=== PATIENT | female | born 1990 | race Hispanic/Latino ===

== ENCOUNTER 2022-12-20 14:11 | Day surgery (SDC) | payer OTHER ==
[2022-12-20 14:43] VITALS: BMI 35.6
[2022-12-20] MEDS ORDERED: hydrALAZINE 20 MG/ML VIAL SLOW IVP PRN (15:04)
[2022-12-20] MEDS ORDERED: Promethazine HCl 25 MG in Sodium Chloride 0.9% 50 ML IVPB PRN (15:06)
[2022-12-20] MEDS ORDERED: Lactated Ringer's 1,000 ML IV SCH (15:15)
[2022-12-20 16:03] LABS: ALT (SGPT) 10 U/L (8-55); AST (SGOT) 13 U/L (5-34); Albumin 3.6 g/dL (3.5-5.0); Alkaline Phosphatase 57 U/L (40-110); Anion Gap 12 mmol/L (10-20); BUN (Urea Nitrogen) 7 mg/dL (7.0-18.7); Bilirubin, Total 0.3 mg/dL (0.2-1.2); Calc. Creatinine Clearance 213 mL/min (70-130); Calcium 8.5 mg/dL (7.8-10.44); Carbon Dioxide 20 mmol/L (22-29); Chloride 108 mmol/L (98-107); Estimated GFR 125; Glucose 103 mg/dL (70-105); Potassium 3.3 mmol/L (3.5-5.1); Protein, Total 5.6 g/dL (6.0-8.3); Sodium 137 mmol/L (136-145)
[2022-12-20 16:08] LABS: #Eosinphils 0.3 10x3/uL (0.0-0.5); #Monocytes 0.3 10x3/uL (0.0-1.1); #Neutrophils 5.1 10x3/uL (1.5-8.4); %Basophils 0.3 % (0.0-2.0); %Eosinophils 4.4 % (0.0-6.0); %Lymphocytes 18.3 % (18.0-47.0); %Neutrophils 72.6 % (40.0-75.0); Hemoglobin 11.2 g/dL (12.0-15.5); Mean Corpuscular HGB CONC 34.4 g/dL (32.0-36.0); Mean Corpuscular Hemoglobin 30.8 pg (27.0-33.0); Mean Corpuscular Volume 89.6 fl (81.6-98.3); Mean Platelet Volume 14.4 fl (7.4-10.4); Platelet Count 82 10x3/uL (150-450); RBC Distribution Width 13.9 % (11.5-14.5); Red Blood Cell (RBC) Count 3.64 10x6/uL (3.90-5.03)
[2022-12-20 16:10] LABS: Large Platelets SLIGHT (None Seen); RBC Morph Comment Within Normal Limits
[2022-12-20 16:11] LABS: Platelet Adequacy Comment Appears Decreased
[2022-12-20 16:40] LABS: HIV (1/2) Antibody/Antigen Non-Reactive (NonReactive); HIV 1/2 INDEX 0.07 S/CO (<1.00)
[2022-12-20] MEDS ORDERED: Potassium Chloride 20 MEQ TAB PO SCH (17:15)
[2022-12-20] MEDS ORDERED: Potassium Chloride 10 MEQ TAB PO SCH (17:15)
[2022-12-20 17:27] LABS: Bilirubin Neg (Negative); Blood, Urine Negative (Negative); Clarity Clear (Clear); Glucose, Urine (Dipstick) Normal (Negative); Ketone, Urine Negative (Negative); Leukocyte 25 (Negative); Nitrite Negative (Negative); Protein, Urine (Dipstick) Negative (Neg-Trace); Specific Gravity, Urine 1.005 (1.005-1.030); Urobilinogen Normal mg/dL (Less than 2)
[2022-12-20 17:49] LABS: Bacteria/HPF 2+ HPF (None Seen); RBC/HPF 0-3 HPF (0-3)
== END 2022-12-20 18:15 | disposition home or self-care (01) ==
LOC: CSHLD/OP 14:11
PROVIDERS: ATTEND Obstetrics & Gynecology
DX: O09.43 Supervision of pregnancy with grand multiparity, third trimester (principal); O36.8130 Decreased fetal movements, third trimester, not applicable or unspecified; O21.2 Late vomiting of pregnancy; Z3A.29 29 weeks gestation of pregnancy; Z91.018 Allergy to other foods
CPT/HCPCS: 80053; 81001; 85025; 87389; J2550

== ENCOUNTER 2023-02-25 19:30 | Inpatient (IN) | payer OTHER ==
[2023-02-25] MEDS ORDERED: HYDROcodone/Acetaminophen 5/325 mg Tablet PO PRN ×2 (20:47)
[2023-02-25] MEDS ORDERED: Lidocaine 1% (PF) 30 ML VIAL SC PRN (20:47)
[2023-02-25] MEDS ORDERED: Promethazine HCl 25 MG/ML VIAL IM PRN (20:47)
[2023-02-25] MEDS ORDERED: Ibuprofen 800 MG TAB PO PRN (20:47)
[2023-02-25] MEDS ORDERED: Misoprostol 200 MCG TAB PR PRN (20:47)
[2023-02-25] MEDS ORDERED: Methylergonovine 0.2 MG/ML VIAL IM PRN (20:47)
[2023-02-25] MEDS ORDERED: hydrALAZINE 20 MG/ML VIAL SLOW IVP PRN (20:47)
[2023-02-25] MEDS ORDERED: Ondansetron PF 4 MG/2 ML Vial IVP PRN (20:47)
[2023-02-25] MEDS ORDERED: fentaNYL 50 mcg/mL 1 mL Vial SLOW IVP PRN (20:47)
[2023-02-26] MEDS ORDERED: Lactated Ringer's 1,000 ML IV SCH (05:00)
[2023-02-26] MEDS ORDERED: Oxytocin 30 units/NS 500 ML 500 ML IV SCH ×3 (05:00→21:00)
[2023-02-26] MEDS: Misoprostol 100 MCG TAB VAG SCH (06:23)
[2023-02-26 07:02] LABS: Syphilis Antibody Nonreactive (Nonreactive); Syphilis Antibody Index 0.07 S/CO (<1.00 Non-Reactive)
[2023-02-26 07:03] LABS: HBSAg Index 0.25 S/CO (0-0.99); Hep B Surf Ag - L&D Non-Reactive S/CO (NonReactive)
[2023-02-26 07:18] LABS: Hematocrit 33.7 % (34.9-44.5); Hemoglobin 11.6 g/dL (12.0-15.5); Mean Corpuscular HGB CONC 34.4 g/dL (32.0-36.0); Mean Corpuscular Volume 90.1 fl (81.6-98.3); Platelet Count 75 10x3/uL (150-450); RBC Distribution Width 13.9 % (11.5-14.5); Red Blood Cell (RBC) Count 3.74 10x6/uL (3.90-5.03); White Blood Cell (WBC) Count 7.3 10x3/uL (3.5-10.5)
[2023-02-26 08:28] VITALS: BMI 37.8
[2023-02-26 08:52] LABS: ALT (SGPT) 15 U/L (8-55); AST (SGOT) 15 U/L (5-34); Albumin 3.5 g/dL (3.5-5.0); Alkaline Phosphatase 86 U/L (40-110); Anion Gap 14 mmol/L (10-20); BUN (Urea Nitrogen) 8 mg/dL (7.0-18.7); Bilirubin, Total 0.4 mg/dL (0.2-1.2); Calc. Creatinine Clearance 198 mL/min (70-130); Calcium 8.5 mg/dL (7.8-10.44); Carbon Dioxide 18 mmol/L (22-29); Chloride 111 mmol/L (98-107); Estimated GFR 121; Globulin 2.3 g/dL (2.4-3.5); Glucose 98 mg/dL (70-105); Protein, Total 5.8 g/dL (6.0-8.3); Sodium 139 mmol/L (136-145)
[2023-02-26] MEDS ORDERED: Carboprost 250 MCG/ML AMP ONE (17:17)
[2023-02-26] MEDS ORDERED: Tranexamic Acid 1,000 MG/10 ML VIAL ONE (17:17)
[2023-02-26] MEDS ORDERED: Erythromycin Base 0.5% Oint 1 GM TUBE ONE (17:55)
[2023-02-26] MEDS ORDERED: Hepatitis B Vaccine 10 MCG/0.5 ML SYR ONE (17:55)
[2023-02-26] MEDS ORDERED: Phytonadione Neonatal 1 MG/0.5 ML AMP ONE (17:55)
[2023-02-26 18:37] LABS: HIV (1/2) Antibody/Antigen Non-Reactive (NonReactive); HIV 1/2 INDEX 0.08 S/CO (<1.00)
[2023-02-26] MEDS ORDERED: Milk Of Magnesia 30 ML UDCUP PO PRN (20:37)
[2023-02-26] MEDS ORDERED: Boostrix 0.5 ML (Tdap) VIAL (>/=7 yrs of age) IM ONE (20:37)
[2023-02-26] MEDS ORDERED: hydrALAZINE 20 MG/ML VIAL SLOW IVP PRN (20:37)
[2023-02-26] MEDS ORDERED: Bisacodyl 10 MG SUPP PR PRN (20:37)
[2023-02-26] MEDS ORDERED: HYDROcodone/Acetaminophen 5/325 mg Tablet PO PRN ×2 (20:37)
[2023-02-26] MEDS ORDERED: Methylergonovine 0.2 MG/ML VIAL IM PRN (20:37)
[2023-02-26] MEDS ORDERED: Benzocaine-Menthol 82.5 ML CAN TOP PRN (20:37)
[2023-02-26] MEDS ORDERED: Lanolin Ointment 7 GM TUBE TOP PRN (20:37)
[2023-02-26] MEDS: Docusate 100 MG CAP PO SCH (22:28)
[2023-02-26] MEDS: Ibuprofen 800 MG TAB PO SCH (22:28)
[2023-02-27] MEDS: Ibuprofen 800 MG TAB PO SCH ×3 (05:44→21:04)
[2023-02-27] MEDS: Prenatal Vitamin 1 TAB PO SCH (08:07)
[2023-02-27] MEDS: Docusate 100 MG CAP PO SCH ×2 (08:07→21:04)
[2023-02-27] MEDS: Ferrous Sulfate 325 MG TAB PO SCH ×2 (08:10→15:44)
[2023-02-28] MEDS: Ibuprofen 800 MG TAB PO SCH (05:07)
[2023-02-28 07:51] VITALS: BP 108/70; TEMP 98
[2023-02-28] MEDS: Ferrous Sulfate 325 MG TAB PO SCH (08:53)
[2023-02-28] MEDS: Docusate 100 MG CAP PO SCH (08:55)
[2023-02-28] MEDS: Prenatal Vitamin 1 TAB PO SCH (08:55)
[2023-02-28] MEDS: Misoprostol 100 MCG TAB VAG SCH (09:28)
== END 2023-02-28 12:25 | disposition home or self-care (01) | DRG 806 ==
LOC: CSHLD 20:48 → UNDOADMIN 02-26 04:43 → CSHPP 02-26 20:00
PROVIDERS: ADMIT Emergency Medicine; ATTEND Obstetrics & Gynecology
PROC: 10E0XZZ Delivery of Products of Conception, External Approach (ICD-10-PCS; principal; 2023-02-26)
DX: O99.12 Other diseases of the blood and blood-forming organs and certain disorders involving the immune mechanism complicating childbirth (principal); D69.3 Immune thrombocytopenic purpura; Z37.0 Single live birth; Z90.89 Acquired absence of other organs; Z3A.39 39 weeks gestation of pregnancy; Z88.8 Allergy status to other drugs, medicaments and biological substances
CPT/HCPCS: 80053; 85027; 86780; 86850; 86900; 86901; 87340; 87389; J2590; J3010